=== PATIENT | male | born 1955 | race Caucasian/White ===

== ENCOUNTER 2016-12-24 11:05 | Observation (INO) | payer OTHER ==
[2016-12-24 11:15] VITALS: RESP 16
--- NOTE | 2016-12-24 11:34 | EDPHY ---
H & P Time Seen by Provider: 12/24/16 11:28 HPI/ROS: CHIEF COMPLAINT: Acute amnesia HISTORY OF PRESENT ILLNESS: This patient is a 61 year old male who presents to the Emergency Department following an episode of acute amnesia this morning. He states that remembers talking on the phone while working at home; he was discussing a set of slides that he reported having never seen before even though he had apparently produced them himself. The next thing he remembered was talking to his in the living room. Per his , he did not know where he was, why he was there and why he wasn't at work. Upon arrival, he is alert and oriented but feels anxious. He believes he remembers everything that has happened since the episode. He describes tachycardia and dizziness that he attributes to anxiety. Medical history includes atrial fibrillation with prior cardioversion. He takes a baby aspirin daily. REVIEW OF SYSTEMS: Constitutional: No fever, no chills Eyes: No visual changes ENT: No sore throat Respiratory: No cough, no shortness of breath Cardiac: +tachycardia attributed to anxiety, no chest pain Gastrointestinal: No nausea, no vomiting, no abdominal pain Genitourinary: No hematuria, no dysuria Musculoskeletal: No leg pain or swelling Skin: No rash Neurological: +amnesiac episode, no headache, no numbness, no weakness Psychiatric: +anxiety, no depression Past Medical/Surgical History: Atrial fibrillation (one prior cardioversion, no medications). Social History: Former smoker. at bedside. Smoking Status: Former smoker Physical Exam: General Appearance: Alert, pleasant Eyes: Pupils equal and round, no conjunctival pallor or injection ENT, Mouth: Right-sided hearing loss, mucous membranes moist Neck: Normal inspection Respiratory: Lungs are clear to auscultation Cardiovascular: Bradycardic, regular rhythm Gastrointestinal: Abdomen is soft and non-tender Neurological: Alert, oriented x3, cranial nerves II through XII intact, motor 5 /5, no pronator drift, sensory intact to light touch, normal gait Skin: Warm and dry, no rash Extremities: Nontender, no pedal edema Psychiatric: Mood and affect normal Constitutional: Initial Vital Signs Temperature (C) 36 C 12/24/16 11:08 Heart Rate 54 L 12/24/16 11:08 Respiratory Rate 16 12/24/16 11:08 Blood Pressure 146/80 H 12/24/16 11:08 O2 Sat (%) 98 12/24/16 11:08 O2 Delivery Mode Room Air Allergies/Adverse Reactions: No Known Allergies Allergy (Verified 12/24/16 11:15) Home Medications: Medication Instructions Recorded Ascorbic Acid [Vitamin C 500 mg 500 mg PO DAILY 12/24/16 (*)] Aspirin [Aspirin 81mg (*)] 81 mg PO DAILY 12/24/16 Multivitamins [Multivitamin (*)] 1 each PO DAILY 12/24/16 Medical Decision Making - Diagnostics EKG Interpretation: EKG interpreted by me reveals NSR, rate 54, LAD, no ST/T changes Imaging: Imaging Impressions Brain MRI 12/24/16 12:02 Impression: 1. Moderate volume white matter disease, differential considerations as above. 2. Otherwise negative MRI examination of the brain. Results called to Dr. Marie Singh at 1:00 p.m. ED Course/Re-evaluation: 61-year-old male presents following an acute amnesiac episode this morning that has since resolved. Upon arrival, he is anxious but has no complaints related to this episode. His exam is benign. I am suspicious of transient global amnesia. That said, will place the patient on conveyor monitor and proceed with EKG, MRI of the brain, and labs to rule out alternate etiologies. Will plan for consultation with neurology. i-Stat chemistries within normal limits. IV established. CBC and chemistries obtained and are within normal limits. Troponin is negative. 1237: Consultation with hospitalist service. Dr. Morgan accepts admission to the [facility]. 1306: MRI results indicate moderate white matter disease as reported to me by Dr. Michael Martinez (see imaging report). Differential Diagnosis: The differential diagnosis for the patient's amnesia included but was not limited to hypoglycemia, TIA, CVA, hypertension, atrial fibrillation, near syncope, electrolyte abnormality, or intoxicants. - Data Points Laboratory Results: Laboratory Results 12/24/16 11:30 12/24/16 11:30 12/24/16 12/24/16 12/24/16 11:30 11:30 11:21 WBC 6.72 10^3/uL 10^3/uL (3.80-9.50) RBC 4.98 10^6/uL 10^6/uL (4.40-6.38) Hgb 16.3 g/dL g/dL (13.7-17.5) POC Hgb 16.7 gm/dL gm/dL (14.5-17.3) Hct 46.9 % % (40.0-51.0) POC Hct 49 % % (42.8-50.6) MCV 94.2 fL fL (81.5-99.8) MCH 32.7 pg pg (27.9-34.1) MCHC 34.8 g/dL g/dL (32.4-36.7) RDW 12.1 % % (11.5-15.2) Plt Count 245 10^3/uL 10^3/uL (150-400) MPV 9.5 fL fL (8.7-11.7) Neut % (Auto) 63.4 % % (39.3-74.2) Lymph % (Auto) 28.9 % % (15.0-45.0) [place] % (Auto) 6.1 % % (4.5-13.0) Eos % (Auto) 0.6 % % (0.6-7.6) Baso % (Auto) 0.9 % % (0.3-1.7) Nucleat RBC Rel Count 0.0 % % (0.0-0.2) Absolute Neuts (auto) 4.26 10^3/uL 10^3/uL (1.70-6.50) Absolute Lymphs (auto) 1.94 10^3/uL 10^3/uL (1.00-3.00) Absolute Monos (auto) 0.41 10^3/uL 10^3/uL (0.30-0.80) Absolute Eos (auto) 0.04 10^3/uL 10^3/uL (0.03-0.40) Absolute Basos (auto) 0.06 10^3/uL 10^3/uL (0.02-0.10) Absolute Nucleated RBC 0.00 10^3/uL 10^3/uL (0-0.01) Immature Gran % 0.1 % % (0.0-1.1) Immature Gran # 0.01 10^3/uL 10^3/uL (0.00-0.10) POC Sodium 142 mEq/L mEq/L (134-144) Sodium 143 mEq/L mEq/L (134-144) POC Potassium 4.4 mEq/L mEq/L (3.3-5.0) Potassium 4.5 mEq/L mEq/L (3.5-5.2) POC Chloride 103 mEq/L mEq/L (96-108) Chloride 105 mEq/L mEq/L (97-110) Carbon Dioxide 26 mEq/l mEq/l (22-31) Anion Gap 12 mEq/L mEq/L (8-16) POC BUN 13 mg/dL mg/dL (7-23) BUN 13 mg/dL mg/dL (7-23) Creatinine 1.0 mg/dL mg/dL (0.7-1.3) POC Creatinine 1.0 mg/dL mg/dL (0.8-1.5) Estimated GFR > 60 Glucose 96 mg/dL mg/dL (70-100) POC Glucose 100 mg/dL mg/dL (70-100) Calcium 9.6 mg/dL mg/dL (8.5-10.4) Troponin I < 0.012 ng/mL ng/mL (0-0.034) Point of Care Test Results: 12/24/16 11:21 POC Sodium 142 POC Potassium 4.4 POC Chloride 103 POC BUN 13 POC Creatinine 1.0 POC Glucose 100 Departure - Departure Disposition: [facility] Inpatient Acute Clinical Impression: Transient global amnesia Condition: Fair Report Scribed for: Marie Singh Report Scribed by: Shira Olmedo Date of Report: 12/24/16 Time of Report: 11:34 Physician Review and Approval Statement: 12/24/16 11:34 Portions of this note were transcribed by a medical photographer. I personally performed a history, physical exam, medical decision making, and confirmed accuracy of information the transcribed note.
[2016-12-24 12:07] LABS: % IMMATURE GRANULYOCYTES 0.1 % (0.0-1.1); ABSOLUTE IMMATURE GRANULOCYTES 0.01 10^3/uL (0.00-0.10); ADD DIFF? NO; ADD MORPH? NO; ADD SCAN? NO; ATYPICAL LYMPHOCYTE FLAG 10 (0-99); FRAGMENT RBC FLAG 0 (0-99); HEMATOCRIT 46.9 % (40.0-51.0); HEMOGLOBIN 16.3 g/dL (13.7-17.5); LEFT SHIFT FLG 0 (0-99); LIPEMIA HEMOLYSIS FLAG 90 (0-99); MEAN CELL HEMOGLOBIN 32.7 pg (27.9-34.1); MEAN CELL HEMOGLOBIN CONCENTR. 34.8 g/dL (32.4-36.7); MEAN CELL VOLUME 94.2 fL (81.5-99.8); MEAN PLATELET VOLUME 9.5 fL (8.7-11.7); PLATELET CLUMPS FLAG 0 (0-99); PLATELET COUNT 245 10^3/uL (150-400); RED BLOOD CELL COUNT 4.98 10^6/uL (4.40-6.38); RED CELL DISTRIBUTION WIDTH 12.1 % (11.5-15.2)
[2016-12-24 12:13] LABS: ANION GAP 12 mEq/L (8-16); CALCIUM 9.6 mg/dL (8.5-10.4); CARBON DIOXIDE 26 mEq/l (22-31); CHLORIDE 105 mEq/L (97-110); GLOMERULAR FILTRATION RATE > 60; GLUCOSE 96 mg/dL (70-100); POTASSIUM 4.5 mEq/L (3.5-5.2); SODIUM 143 mEq/L (134-144)
--- NOTE | 2016-12-24 12:13 | CPEKG ---
Heart Rate: 54 RR Interval: 1111 P-R Interval: 148 QRSD Interval: 104 QT Interval: 448 QTC Interval: 425 P [place]: 41 QRS [place]: -34 T Wave [place]: 7 EKG Severity - OTHERWISE NORMAL ECG - EKG Impression: SINUS RHYTHM EKG Impression: LEFT AXIS DEVIATION EKG Impression: LOW VOLTAGE IN FRONTAL LEADS Electronically Signed By: Armaan Chicas 25-Dec-2016 12:08:47
[2016-12-24 12:25] LABS: TROPONIN I < 0.012 ng/mL (0-0.034)
--- NOTE | 2016-12-24 15:16 | ECHO ---
[id number] + + [address] : : [place] [address] : : [phone] + + Adult Echocardiographic Report + -+ :Name: [place] MARTINEZ Date: 12/24/2016 01:53 PM : : Hospital Admission Number: [id number] Location: E R: :: 1955 Gender: Male Height: 70 in : :Age: 61 yrs Race: WH Weight: 175 lb : :Reason For Study: Question TIA : : BSA: 2.0 meters2 : + -+ MMode/2D Measurements \T\ Calculations IVSd: 0.98 cm LVIDd: 5.4 cm FS: 41.4 % Ao root diam: LVPWd: 0.73 cm LVIDs: 3.2 cm EDV(Teich): 3.8 cm 141.9 ml LA dimension: ESV(Teich): 4.1 cm 40.0 ml EF(Teich): 71.8 % LVLd ap4: 8.3 cm SV(MOD-sp4): EDV(MOD-sp4): 67.0 ml 92.0 ml LVLs ap4: 6.4 cm ESV(MOD-sp4): 25.0 ml EF(MOD-sp4): 72.8 % Normal Measurement Values: + + :LVIDd (3.5-5.7cm) IVSd (0.6-1.1cm) LVPWd (0.6-1.1cm) Aortic Root (2.0-3.7cm)Left Atrium (1.5-4.0cm): :LV Vol(d) (76-115ml) LV Vol(s) (29-48ml) Ejec Fraction (50-65%)PV Jeremy (0.6- 1.2m/s) TV Jeremy (0.4-1.0m/s) : :MV E Jeremy (0.8-1.0m/s)MV A Jeremy (0.3-1.0m/s)LVOT Jeremy (0.7-1.2m/s) Asc Ao Jeremy ( 0.9-1.8m/s) : + + Doppler Measurements \T\ Calculations MV E max jeremy: 48.9 cm/sec Ao V2 max: 131.0 cm/sec TR max jeremy: 246.0 cm/sec MV A max jeremy: 47.4 cm/sec Ao max P.9 mmHg TR max P.2 mmHg MV E/A: 1.0 Ao mean P.0 mmHg RAP systole: 5.0 mmHg Ao V2 mean: 85.8 cm/sec RVSP(TR): 29.2 mmHg Ao V2 VTI: 28.0 cm Left Ventricle The left ventricle is normal in size. There is normal left ventricular wall thickness. Left ventricular systolic function is normal. Ejection Fraction = 60-65%. No regional wall motion abnormalities noted. Right Ventricle The right ventricle is normal in size and function. Atria The left atrial size is normal. Right atrial size is normal. Mitral Valve The mitral valve is normal in structure and function. There is no evidence of mitral valve prolapse. There is no mitral valve stenosis. There is mild mitral regurgitation. Tricuspid Valve Normal tricuspid valve. There is mild tricuspid regurgitation. Right ventricular systolic pressure is normal. Aortic Valve The aortic valve is trileaflet. The aortic valve opens well. There is no aortic stenosis. Trace aortic regurgitation. Pulmonic Valve The pulmonic valve is normal in structure and function. There is no pulmonic valvular regurgitation. Great Vessels The aortic root is normal size. Pericardium/Pleural There is no pericardial effusion. Conclusion A complete two-dimensional transthoracic echocardiogram was performed (2D, M-mode, Doppler and color flow Doppler). Left ventricular systolic function is normal. Ejection Fraction = 60-65%. There is mild mitral regurgitation. There is mild tricuspid regurgitation. Right ventricular systolic pressure is normal. Trace aortic regurgitation. Compared with JEFFERY dated 05/13/2014, LV function has normalized. Previous bubble study was negative for intracardiac shunting Final Reading Physician: Dr Tammie Jama electronically signed on 12/24/2016 03:15 PM Ordering Physician: ALBA MARTINEZ Performed By: Felicia Clemens RDCS
--- NOTE | 2016-12-24 16:10 | PDGENHP ---
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 Cardenas HPI: 61-year-old male presenting with acute disorientation characterized as inability to recall where he was or to whom he was speaking, with associated poor memory and subsequent anxiety. Onset of symptoms was approximately 10:30 a.m. on the day of this presentation, and duration was several minutes. Patient denies any precipitating sensation of chest pain or palpitations and he reports that he had otherwise been feeling well on the morning of this presentation prior to the onset of symptoms. He had eaten breakfast, had not physically exerted himself and he had not consumed any alcohol products on the evening prior to these symptoms. He has been taking his aspirin as prescribed and has not recently had any other medication changes. He denies ever experiencing similar symptoms. He does note that the symptoms occurred in the setting of a particularly frustrating telephone conversation. He denies any paresthesias or paresis. History Information - Allergies/Home Medication List Allergies/Adverse Reactions: No Known Allergies Allergy (Verified 12/24/16 11:15) Home Medications: Ascorbic Acid [Vitamin C 500 mg (*)] 500 mg PO DAILY 12/24/16 [Last Taken ] Aspirin [Aspirin 81mg (*)] 81 mg PO DAILY 12/24/16 [Last Taken 12/24/16] Multivitamins [Multivitamin (*)] 1 each PO DAILY 12/24/16 [Last Taken 12/24/16] I have personally reviewed and updated: family history, medical history, social history, surgical history - Past Medical History atrial fibrillation (Status post JEFFERY and DC cardioversion in 2013) Additional medical history: Right hip osteoarthritis - Surgical History Additional surgical history: Right hip total arthroplasty and 2016 - Family History Positive for: father with history of CAD younger than 55 (Myocardial infarction at age 52) Additional family history: Sister with thoracic aneurysm - Social History Smoking Status: Former smoker Alcohol Use: Occasionally Drug Use: None Additional social history: Physically active at baseline, no recent reduction in exercise tolerance Review of Systems ROS: 10pt was reviewed & negative except for what was stated in HPI & below Neurological: Reports: other (Confusion, disorientation, anxiety, poor memory) Physical Exam Temp Pulse Resp BP Pulse Ox 36.8 C 55 L 16 119/80 95 12/24/16 13:36 12/24/16 13:36 12/24/16 13:36 12/24/16 13:36 12/24/16 13:36 Constitutional: no apparent distress, appears nourished, not in pain Eyes: PERRL, anicteric sclera, EOMI Ears, Nose, Mouth, Throat: moist mucous membranes, hearing normal, ears appear normal, no oral mucosal ulcers Cardiovascular: regular rate and rhythym, no murmur, rub, or gallop, No carotid bruit, No edema Respiratory: no respiratory distress, no rales or rhonchi, clear to auscultation Gastrointestinal: normoactive bowel sounds, soft, non-tender abdomen, no palpable masses Genitourinary: no bladder fullness, no bladder tenderness, no renal bruits Neurologic: AAOx3, sensation intact bilaterally, CN II-XII Intact, No weakness ( Motor strength 5/5 bilaterally) Psychiatric: interacting appropriately, not anxious, not encephalopathic, thought process linear Lab Data & Imaging Review 12/24/16 11:30 12/24/16 11:30 WBC 6.72 10^3/uL (3.80-9.50) 12/24/16 11:30 RBC 4.98 10^6/uL (4.40-6.38) 12/24/16 11:30 Hgb 16.3 g/dL (13.7-17.5) 12/24/16 11:30 POC Hgb 16.7 gm/dL (14.5-17.3) 12/24/16 11:21 Hct 46.9 % (40.0-51.0) 12/24/16 11:30 POC Hct 49 % (42.8-50.6) 12/24/16 11:21 MCV 94.2 fL (81.5-99.8) 12/24/16 11:30 MCH 32.7 pg (27.9-34.1) 12/24/16 11:30 MCHC 34.8 g/dL (32.4-36.7) 12/24/16 11:30 RDW 12.1 % (11.5-15.2) 12/24/16 11:30 Plt Count 245 10^3/uL (150-400) 12/24/16 11:30 MPV 9.5 fL (8.7-11.7) 12/24/16 11:30 Neut % (Auto) 63.4 % (39.3-74.2) 12/24/16 11:30 Lymph % (Auto) 28.9 % (15.0-45.0) 12/24/16 11:30 [place] % (Auto) 6.1 % (4.5-13.0) 12/24/16 11:30 Eos % (Auto) 0.6 % (0.6-7.6) 12/24/16 11:30 Baso % (Auto) 0.9 % (0.3-1.7) 12/24/16 11:30 Nucleat RBC Rel Count 0.0 % (0.0-0.2) 12/24/16 11:30 Absolute Neuts (auto) 4.26 10^3/uL (1.70-6.50) 12/24/16 11:30 Absolute Lymphs (auto) 1.94 10^3/uL (1.00-3.00) 12/24/16 11:30 Absolute Monos (auto) 0.41 10^3/uL (0.30-0.80) 12/24/16 11:30 Absolute Eos (auto) 0.04 10^3/uL (0.03-0.40) 12/24/16 11:30 Absolute Basos (auto) 0.06 10^3/uL (0.02-0.10) 12/24/16 11:30 Absolute Nucleated RBC 0.00 10^3/uL (0-0.01) 12/24/16 11:30 Immature Gran % 0.1 % (0.0-1.1) 12/24/16 11:30 Immature Gran # 0.01 10^3/uL (0.00-0.10) 12/24/16 11:30 POC Sodium 142 mEq/L (134-144) 12/24/16 11:21 Sodium 143 mEq/L (134-144) 12/24/16 11:30 POC Potassium 4.4 mEq/L (3.3-5.0) 12/24/16 11:21 Potassium 4.5 mEq/L (3.5-5.2) 12/24/16 11:30 POC Chloride 103 mEq/L (96-108) 12/24/16 11:21 Chloride 105 mEq/L (97-110) 12/24/16 11:30 Carbon Dioxide 26 mEq/l (22-31) 12/24/16 11:30 Anion Gap 12 mEq/L (8-16) 12/24/16 11:30 POC BUN 13 mg/dL (7-23) 12/24/16 11:21 BUN 13 mg/dL (7-23) 12/24/16 11:30 Creatinine 1.0 mg/dL (0.7-1.3) 12/24/16 11:30 POC Creatinine 1.0 mg/dL (0.8-1.5) 12/24/16 11:21 Estimated GFR > 60 12/24/16 11:30 Glucose 96 mg/dL (70-100) 12/24/16 11:30 POC Glucose 100 mg/dL (70-100) 12/24/16 11:21 Calcium 9.6 mg/dL (8.5-10.4) 12/24/16 11:30 Troponin I < 0.012 ng/mL (0-0.034) 12/24/16 11:30 Visualized and Interpreted EKG results: Yes EKG Interpretation: Positive for: other (Normal sinus rhythm with T-wave inversion in lead 3) Assessment & Plan Assessment: 61-year-old male presents with transient global amnesia potentially secondary to TIA in the setting of atrial fibrillation Plan: 1. Transient global amnesia. Acute, new problem this provider, further workup indicated. Symptoms include confusion, disorientation, poor memory with duration of symptoms several minutes and no other focal neurologic symptoms. Occurred in the setting of a particularly frustrating conversation which could have potentially increased his blood pressure transiently. The patient reports that he has particularly symptomatic atrial fibrillation which has not recurred since 2013. -monitor on telemetry overnight for any recurrence of silent arrhythmias -get carotid ultrasounds and echocardiogram to rule out any vascular stenosis or valvular heart issues -get lipid panel and hemoglobin A1c to evaluate for risk factors -monitor for hypertension given his significant amount of white matter disease on brain MRI indicating either age related changes or undiagnosed, poorly controlled hypertension -per patient request, get Neurology consultation to help patient understand whether he truly experienced a TIA versus nonspecific transient global amnesic event 2. Paroxysmal atrial fibrillation. Normal sinus rhythm on EKG, last known AFib event in 2013 which responded favorably to DC cardioversion and transesophageal echocardiogram demonstrating left atrial thrombus at that time, per review of outside records including 05/13/2014 cardiac catheterization report by Dr. Cardenas. -monitor on telemetry -recommend outpatient event monitor to be arranged through [facility] -continue aspirin 81 mg for CVA prevention -hold on any antiarrhythmic or cong blocking agents Diet. Regular Prophylaxis. Low risk patient, SCDs Code. Full Disposition. Anticipated discharge is 12/25/2016, pending further workup as outlined above. I have discussed patient's presentation with Serenity Ervinoya hospitalist, she has signed out the patient for me to evaluate.
[2016-12-24 17:06] LABS: CHOLESTEROL 193 mg/dL (140-220); CHOLESTEROL/HDL RATIO 3.45 RATIO (1.00-4.97); HIGH DENSITY LIPOPROTEIN 56 mg/dL (40-65); LOW DENSITY LIPOPROTEIN 123 mg/dL (80-100); NON-HIGH DENSITY LIPOPROTEIN 137 mg/dL (90-129); TRIGLYCERIDE 71 mg/dL (40-150); VERY LOW DENSITY LIPOPROTEINS 14 mg/dL (8-25)
[2016-12-24] MEDS ORDERED: ASPIRIN 81 MG CHEWABLE TAB PO SCH (21:00)
[2016-12-25 07:54] VITALS: BP 115/81; PULSE 58; TEMP 98.1; O2SAT 95
[2016-12-25] MEDS ORDERED: MULTIVITAMINS 1 EACH TAB PO SCH (09:00)
[2016-12-25] MEDS ORDERED: ASCORBIC ACID 500 MG TAB PO SCH (09:00)
--- NOTE | 2016-12-25 15:09 | PDDCSUM ---
Discharge Summary Discharge Summary: DISCHARGE SUMMARY FOLLOW-UP ITEMS: Outpatient event monitor through Dr. Cardenas office DATE OF ADMISSION: 12/24/16 DATE OF DISCHARGE: 12/25/2016 DISCHARGE DIAGNOSES: 1. Transient global amnesia 2. Paroxysmal atrial fibrillation CONSULTATIONS: Neurology by Dr. Ingram PROCEDURES / IMAGING: MRI brain demonstrating diffuse white matter disease but no focal infarct, echocardiogram demonstrating no focal wall motion abnormalities, carotid ultrasounds demonstrating no evidence of stenosis CHIEF COMPLAINT: Transient confusion/disorientation SUBJECTIVE: Patient is feeling well at time of discharge he has not had any recurrence of symptoms PHYSICAL EXAM ON DISCHARGE: Systolic blood pressure is 110, heart rate 60, afebrile overnight, satting well on room air, or awake oriented x3 LABS ON DISCHARGE: Hemoglobin A1c 5%, LDL 123 HOSPITAL COURSE BY PROBLEM: 1. Transient global amnesia. The patient presented with symptoms consisting of confusion and disorientation which were transient in nature occurred in the setting of a stressful conversation. He did not have any focal neurologic symptoms and he was seen in of consultation by Dr. Ingram, who determined that the patient most likely had a transient global amnesia event without overt transient ischemic attack. He was monitored on telemetry overnight and did not demonstrate any evidence of asymptomatic atrial fibrillation. Underwent an MRI which demonstrated age-appropriate white matter disease but no CVA. He had an echocardiogram which demonstrated no evidence of focal wall motion abnormalities or significant valvular disease. He had carotid ultrasounds which demonstrated no evidence of stenosis. At the present time, other than continuing on aspirin 81 mg daily, Dr. Ingram does not recommend any additional risk factor modification. I have counseled the patient regarding dietary modification for his marginally elevated LDL as well as annual monitoring. 2. Paroxysmal atrial fibrillation. Patient has a history of atrial fibrillation which was symptomatic in nature and responded to DC cardioversion with transesophageal echocardiogram in 2013. He has not required any additional antiarrhythmic or cong blocking agents since that time and he has been maintained on aspirin 81 mg for CVA prevention. The patient did not experience any symptoms consistent with AFib prior to this presentation and I think that is less likely that this presentation was provoked by new, asymptomatic AFib. That being said, in the setting of above, would recommend an outpatient event monitor to be arranged through the office of Dr. Cardenas. At the present time, we will recommend ongoing use of aspirin 81 mg for CVA prevention. DISCHARGE MEDICATIONS: Please see official discharge medication reconciliation sheet in chart , no changes to home medications. DISCHARGE INSTRUCTIONS: Patient should have an event monitor arranged through the office of Dr. Cardenas , patient contact.
--- NOTE | 2016-12-25 19:58 | GCON ---
[f rep st] CONSULTATION DATE OF CONSULTATION: 12/25/2016 CHIEF COMPLAINT: Transient global amnesia. HISTORY OF PRESENT ILLNESS: Dr. Morgan of the hospitalist service consulted Neurology for evaluatio n of the patient's altered mental status. Results of evaluation were placed in the EMR for his revi ew. This is a 61-year-old male, with a prior history of atrial fibrillation, although none since 2013, w ho states on December 24, 2016, he was at home with his on a phone call when he developed sudden-on set inability to perform short-term memories. This lasted approximately 30-60 minutes. He has trou ble remembering these events, but had no problems since then. He states this has never happened bef ore. He had no focal neurologic deficits during that time nor since. A brain MRI and carotid ultra sounds are unremarkable. Currently feels back to normal. PAST MEDICAL HISTORY: Atrial fibrillation, status post JEFFERY and DC cardioversion in 2013, right hip osteoarthritis. FAMILY HISTORY: CAD, thoracic aneurysm. SOCIAL HISTORY: Former smoker. REVIEW OF SYSTEMS: A 10-point review of systems is negative, except for what was placed in HPI. PHYSICAL EXAMINATION: VITAL SIGNS: Blood pressure 115/81, heart rate 58, respirations 16, saturati ng 95% on room air, temperature 36.7 degrees Celsius. GENERAL: No acute distress. EYES: Fundusco pic exam: Could not visualize optic discs. LUNGS: Clear to auscultation bilaterally. No rhonchi or rales. HEART: Regular rate and rhythm. No murmurs. No carotid bruits auscultated. NEUROLOGIC : Mental status: Alert and oriented to person, place, and date. Memory, attention, language, and fund of knowledge all appear intact. Cranial nerves: Pupils equal, round, reactive to light. Visu al coleman full to confrontation. Extraocular muscles intact. Bilateral face intact to sensation an d motor movement. Hearing intact to conversation. Uvula raises symmetrically. Tongue protrudes mi dline. Traps 5/5 strength. Motor: Normal tone and strength in all 4 extremities. Sensory: All 4 extremities intact to light touch. Reflexes: Bilateral biceps, brachioradialis, patellar, 2/4. C oordination: Bilateral [id number], ufiq-[id number], rapid-alternating movements are normal. Gait deferred. LABORATORY DATA: December 24, 2016: is 5. LDL of 123. IMAGING: December 24, 2016: Brain MRI without contrast shows no acute changes. I personally visualize d this study. December 24, 2016: A carotid ultrasound shows no hemodynamically significant stenosis. December 24, 2016: A transthoracic echocardiogram shows no cardioembolic source for his symptoms. ASSESSMENT: 1. Transient global amnesia. Given the fact that he had 30 to 60 minutes of sudden-onset inability to perform short-term memory with no other focal neurologic deficits, and he has completely recover ed, with normal MRI, carotid ultrasound, and transthoracic echocardiogram, I do believe this is the correct diagnosis. This is a self-limited condition and requires no further treatment. He is on a daily aspirin prior to this for general heart health, but I do not think he needs any change in his medication at this time. I have given the patient my phone number in case any new symptoms develop. 2. History of atrial fibrillation: Not currently seen this evaluation. RECOMMENDATIONS: 1. Agree with aspirin daily for general heart stroke prevention, although I do not think TGA specif ically increases his risk for any further cardiac events. 2. Patient given my phone number to call if any new symptoms develop; however, he does not require any followup at this time. 3. No further neurologic workup is needed. Neurology will sign off at this point. /[id number]/MODL
== END 2016-12-25 16:15 | disposition home or self-care (01) ==
LOC: F1N 14:31
PROVIDERS: ADMIT Internal Medicine; ATTEND Internal Medicine
DX: G45.4 Transient global amnesia (principal); I48.0 Paroxysmal atrial fibrillation; Z79.82 Long term (current) use of aspirin; Z87.891 Personal history of nicotine dependence; Z96.641 Presence of right artificial hip joint; Z82.49 Family history of ischemic heart disease and other diseases of the circulatory system
CPT/HCPCS: 70551; 93005; 93306; 93880; 99285; G0378; 82947-QW